=== PATIENT | male | born 1985 | race Caucasian/White ===

== ENCOUNTER 2020-03-10 16:09 | Emergency (ER) | payer SELFPAY ==
[~2020-03-10] VITALS: Ht 167.6 cm; Wt 90.7 kg
[2020-03-10 16:15] VITALS: BP 162/85
--- NOTE | 2020-03-10 16:21 | NUR ---
pt taken to er bed 11
--- NOTE | 2020-03-10 16:22 | NUR ---
C/O LEFT LEG SWELLING AND REDNESS THAT HE NOTICED 2 DAYS AGO. LEFT CALF IS WARM TO TOUCH, TENDER, AND SWOLLEN. POST TIBIAL PULSES PRESENT. PT DENIES INJURY TO LEFT LEG. ROM+. PT ABLE TO AMBULATE. PT AWAKE, ALERT, AFIBRILE, AMBULATORY WITH STEADY GAIT. PMH: DIABETES (ONE YEAR AGO)
--- NOTE | 2020-03-10 16:24 | NUR ---
DR HUITRON AT BEDSIDE EVALUATING PT.
[2020-03-10] MEDS ORDERED: SULFAMETH/TRIMETH DS 800/160MG 1 TAB PO ONE (17:10)
[2020-03-10 17:22] VITALS: BP 162/85
--- NOTE | 2020-03-10 17:23 | NUR ---
Patient discharged with v/s stable. Written and verbal after care instructions given and explained regarding cellulitis . Patient alert, oriented and verbalized understanding of instructions. Ambulatory with steady gait. All questions addressed prior to discharge. ID band removed. Patient advised to follow up with PMD. Rx of bactrim given. Patient educated on indication of medication including possible reaction and side effects. Opportunity to ask questions provided and answered.
== END 2020-03-10 17:23 | disposition home or self-care (01) ==
LOC: MED 16:09
DX: L03.116 Cellulitis of left lower limb (principal); E11.9 Type 2 diabetes mellitus without complications; Z88.1 Allergy status to other antibiotic agents
CPT/HCPCS: 93971; 99284; Q0092

== ENCOUNTER 2021-06-28 21:10 | Emergency (ER) | payer SELFPAY ==
[~2021-06-28] VITALS: Ht 167.6 cm; Wt 95.7 kg
[2021-06-28 23:22] VITALS: BP 171/98
[2021-06-28 23:30] VITALS: BP 171/98
[2021-06-28] MEDS ORDERED: SULFAMETH/TRIMETH DS 800/160MG 1 TAB PO ONE (23:50)
[2021-06-29] MEDS ORDERED: SULF-59 PO
== END 2021-06-29 00:10 | disposition home or self-care (01) ==
LOC: MED 21:10
DX: M79.604 Pain in right leg (principal); E11.9 Type 2 diabetes mellitus without complications; Z88.1 Allergy status to other antibiotic agents
CPT/HCPCS: 99283

== ENCOUNTER 2021-10-23 23:32 | Emergency (ER) | payer SELFPAY ==
[~2021-10-23] VITALS: Ht 167.6 cm; Wt 95.8 kg
[~2021-10-23 23:32] MED LIST: SULF-59 PO
[2021-10-24 00:25] VITALS: BP 220/110
[2021-10-24] MEDS ORDERED: SULFAMETH/TRIMETH DS 800/160MG 1 TAB PO ONE (01:40)
[2021-10-24] MEDS ORDERED: BACITRACIN OINT 500 UNITS/GM PKT TP ONE (01:40)
[2021-10-24] MEDS ORDERED: BACI1PAC6 TP (01:50)
[2021-10-24] MEDS ORDERED: SULF-59 PO (01:50)
[2021-10-24 02:00] VITALS: BP 185/85
--- NOTE | 2021-10-24 02:01 | NUR ---
Patient discharged with v/s stable. Written and verbal after care instructions given and explained. Patient verbalized understanding. Ambulatory with steady gait. All questions addressed prior to discharge. Advised to follow up with PMD.
== END 2021-10-24 01:58 | disposition home or self-care (01) ==
LOC: MED 23:32
DX: S31.109A Unspecified open wound of abdominal wall, unspecified quadrant without penetration into peritoneal cavity, initial encounter (principal); E11.9 Type 2 diabetes mellitus without complications; F17.200 Nicotine dependence, unspecified, uncomplicated; Z88.1 Allergy status to other antibiotic agents; Z88.8 Allergy status to other drugs, medicaments and biological substances; Z79.899 Other long term (current) drug therapy; X58.XXXA Exposure to other specified factors, initial encounter; Y93.89 Activity, other specified; Y92.89 Other specified places as the place of occurrence of the external cause; Y99.8 Other external cause status
CPT/HCPCS: 99283